=== PATIENT | male | born 1975 | race Caucasian/White ===

== ENCOUNTER 2016-09-29 17:28 | Emergency (ER) | payer OTHER ==
[~2016-09-29] VITALS: Ht 175.3 cm; Wt 102.2 kg
[2016-09-29 20:31] LABS: BASOPHIL % 0.1 % (0-2); PLATELET COUNT 350 x10^3mcL (130-400); RED CELL DISTRIBUTION WIDTH 13.4 % (11.5-14.5)
[2016-09-29 23:07] VITALS: BP 131/96
== END 2016-09-29 23:07 | disposition home or self-care (01) ==
LOC: ED 17:28
PROVIDERS: Emergency Medicine Emergency Medical Services
DX: J32.9 Chronic sinusitis, unspecified (principal)
CPT/HCPCS: 36415